=== PATIENT | male | born 1940 | race Hispanic/Latino ===

== ENCOUNTER → 2020-09-24 | Outpatient (CLI) | payer OTHER | END | disposition home or self-care (01) | LOC: SHCH 13:15 | PROVIDERS: ATTEND Internal Medicine Cardiovascular Disease | DX: I87.2 Venous insufficiency (chronic) (peripheral) (principal); I70.293 Other atherosclerosis of native arteries of extremities, bilateral legs | CPT/HCPCS: 93925; 93970 ==